=== PATIENT | female | born 1965 | race Caucasian/White ===

== ENCOUNTER 2016-08-02 17:02 | Emergency (ER) | payer OTHER ==
[2016-08-02] MEDS ORDERED: Bacitracin Zinc 1 Packet ONE (18:04)
== END 2016-08-02 18:50 | disposition home or self-care (01) ==
LOC: MADERS 17:02
DX: S61.411A Laceration without foreign body of right hand, initial encounter (principal); W45.8XXA Other foreign body or object entering through skin, initial encounter
CPT/HCPCS: 12002

== ENCOUNTER 2018-02-09 11:10 | Outpatient (CLI) | payer OTHER ==
--- NOTE | 2018-02-09 16:33 | CT ---
CT ABDOMEN AND PELVIS WITH IV CONTRAST: Date: 02/09/18 HISTORY: Right upper quadrant abdominal pain. COMPARISON: None available. FINDINGS: There is minimal dependent bibasilar atelectasis. Postsurgical changes involving the stomach, which may be related to gastric sleeve procedure, are pre sent. There is an approximately 11.0 mm hypodense nodule in the right hepatic lobe which cannot be further characterized, but does not demonstrate characteristics suggestive of a cyst. The spleen, pancreas, bilateral adrenal glands, kidneys, opacified small bowel, and urinary bladder d emonstrate a normal CT appearance. Uterus is absent related to prior hysterectomy. There is a small to moderate amount of retained fecal material seen throughout the colon. The appendix is normal in caliber, without CT evidence of appendicitis. IMPRESSION: 1. Nonspecific, too small to characterize, hypodense lesion in the right hepatic lobe. Follow-up vick luation in 6 months is recommended. 2. No acute findings are seen in the abdomen or pelvis. 3. Postsurgical changes of the stomach with evidence of hysterectomy. 4. Small to moderate amount of retained fecal material seen throughout the colon. POS: [facility]
[2018-02-09 17:26] LABS: HBCM Index 0.27 S/CO (0-0.79); HBSAg Index 0.24 S/CO (0-0.99); Hep A IgM AB Non-Reactive (NonReactive); Hep A IgM S/CO 0.23 S/CO (0-0.79); Hep B Surf Ag Non-Reactive S/CO (NonReactive); Hep C IgG Ab Non-Reactive (NonReactive); Hep C Index 0.13 S/CO (0-0.79); Hepatitis B Core IGM Abs Non-Reactive (NonReactive)
[2018-02-09 21:12] LABS: Anion Gap 14 mmol/L (10-20); Globulin 3.2 g/dL (2.4-3.5)
[2018-02-09 23:33] LABS: ALT (SGPT) 20 U/L (8-55); AST (SGOT) 22 U/L (5-34); Albumin 4.6 g/dL (3.5-5.0); Alkaline Phosphatase 98 U/L (40-150); BUN (Urea Nitrogen) 18 mg/dL (9.8-20.1); Bilirubin, Total 0.7 mg/dL (0.2-1.2); Calc. Creatinine Clearance 0 mL/min (70-130); Carbon Dioxide 25 mmol/L (22-29); Chloride 107 mmol/L (98-107); Estimated GFR-MDRD 65; Glucose 95 mg/dL (70-105); Protein, Total 7.9 g/dL (6.0-8.3); Sodium 143 mmol/L (136-145)
[2018-02-10 15:53] LABS: #Eosinphils 0.2 thou/uL (0.0-0.7); #Monocytes 0.4 thou/uL (0.11-0.59); #Neutrophils 4.5 thou/uL (1.40-6.50); %Basophils 0.6 % (0.0-1.0); %Eosinophils 2.6 % (0.0-10.0); %Lymphocytes 28.5 % (21.0-51.0); %Monocytes 5.7 % (0.0-10.0); %Neutrophils 62.7 % (42.0-75.0); Hemoglobin 15.7 g/dL (12.0-16.0); Mean Corpuscular HGB CONC 34.4 g/dL (32.0-36.0); Mean Corpuscular Hemoglobin 30.5 pg (27.0-31.0); Mean Corpuscular Volume 88.5 fL (78.0-98.0); Mean Platelet Volume 9.2 fL (7.4-10.4); Platelet Count 201 thou/uL (130-400); RBC Distribution Width 11.5 % (11.5-14.5); Red Blood Cell (RBC) Count 5.14 mill/uL (4.20-5.40); White Blood Cell (WBC) Count 7.2 thou/uL (4.8-10.8)
== END 2018-02-09 11:11 | disposition home or self-care (01) ==
LOC: MADCT 11:10
PROVIDERS: ATTEND Family Medicine
DX: R10.821 Right upper quadrant rebound abdominal tenderness (principal); R10.11 Right upper quadrant pain; K59.00 Constipation, unspecified; Z98.890 Other specified postprocedural states; Z90.710 Acquired absence of both cervix and uterus
CPT/HCPCS: 36415; 74177; 80053; 80074; 85025

== ENCOUNTER 2020-02-02 19:34 | Emergency (ER) | payer OTHER ==
[2020-02-02] MEDS ORDERED: HYDROcodone/Acetaminophen 5/325 mg Tablet ONE (19:48)
[2020-02-02] MEDS ORDERED: Ibuprofen 800 MG TAB ONE (19:49)
[2020-02-02] MEDS ORDERED: Bacitracin 1 PK ONE (19:49)
--- NOTE | 2020-02-02 20:23 | RAD ---
RIGHT FEMUR TWO VIEWS: History: Fall, injury, right lower extremity pain. FINDINGS: The right femur is intact. POS: OFF
--- NOTE | 2020-02-02 20:25 | RAD ---
RADIOGRAPH RIGHT LEG TIBIA/FIBULA TWO VIEWS: DATE: 02-02-2020 History: 54-year-old female with acute traumatic right leg pain. FINDINGS: No fracture or any other significant osseous abnormality of the tibia or fibula. IMPRESSION: Negative. POS: [facility]
== END 2020-02-02 21:00 | disposition home or self-care (01) ==
LOC: MADERS 19:34
DX: S80.11XA Contusion of right lower leg, initial encounter (principal); S70.311A Abrasion, right thigh, initial encounter; S80.211A Abrasion, right knee, initial encounter; I10 Essential (primary) hypertension; Z79.899 Other long term (current) drug therapy; W01.0XXA Fall on same level from slipping, tripping and stumbling without subsequent striking against object, initial encounter

== ENCOUNTER 2025-03-19 04:52 | Emergency (ER) | payer BC ==
[2025-03-19 05:24] LABS: #Basophils 0.1 thou/uL (0.0-0.2); #Eosinophils 0.3 thou/uL (0.0-0.7); #Lymphocytes 2.6 thou/uL (1.20-3.40); #Monocytes 0.5 thou/uL (0.11-0.59); #Neutrophils 4.2 thou/uL (1.40-6.50); %Basophils 1.4 % (0.0-1.0); %Eosinophils 4.4 % (0.0-10.0); %Lymphocytes 33.8 % (21.0-51.0); %Monocytes 5.8 % (0.0-10.0); %Neutrophils 54.7 % (42.0-75.0); Hematocrit 45.8 % (36.0-47.0); Hemoglobin 15.0 g/dL (12.0-16.0); Mean Corpuscular Hemoglobin 28.2 pg (27.0-31.0); Mean Corpuscular Volume 85.9 fl (78.0-98.0); Platelet Count 214 10x3/uL (130-400); Red Blood Cell (RBC) Count 5.33 mill/uL (4.20-5.40); White Blood Cell (WBC) Count 7.8 10x3/uL (4.8-10.8)
[2025-03-19 05:39] LABS: ALT (SGPT) 23 U/L (Less than 34); AST (SGOT) 36 U/L (11-34); Albumin 3.9 g/dL (3.1-4.5); Alkaline Phosphatase 67 U/L (40-110); Anion Gap 16 mmol/L (10-20); BUN (Urea Nitrogen) 23 mg/dL (9.8-20.1); Bilirubin, Total 0.5 mg/dL (0.3-1.2); Calc. Creatinine Clearance 0 mL/min (70-130); Calcium 9.5 mg/dL (7.8-10.44); Carbon Dioxide 25 mmol/L (22-29); Chloride 105 mmol/L (98-107); Globulin 3.3 g/dL (2.4-3.5); Glucose 124 mg/dL (70-105); Potassium 4.0 mmol/L (3.5-5.1); Sodium 142 mmol/L (136-145)
[2025-03-19] MEDS ORDERED: Ondansetron PF 4 MG/2 ML Vial ONE (06:15)
[2025-03-19] MEDS ORDERED: Ketorolac Tromethamine 30 MG (1 mL) VIAL ONE (07:17)
[2025-03-19] MEDS ORDERED: HYDROcodone/Acetaminophen 5/325 mg Tablet ONE (07:21)
[2025-03-19] MEDS ORDERED: Cyclobenzaprine 10 MG TAB ONE (07:21)
== END 2025-03-19 07:45 | disposition home or self-care (01) ==
LOC: MADERS 04:52
DX: S01.511A Laceration without foreign body of lip, initial encounter (principal); S39.012A Strain of muscle, fascia and tendon of lower back, initial encounter; S16.1XXA Strain of muscle, fascia and tendon at neck level, initial encounter; S80.02XA Contusion of left knee, initial encounter; S80.01XA Contusion of right knee, initial encounter; I10 Essential (primary) hypertension; W06.XXXA Fall from bed, initial encounter; Z79.899 Other long term (current) drug therapy
CPT/HCPCS: 70450; 70486; 72125; 80053; 85025; 93005; 96374; 96375; J1885